=== PATIENT | female | born 1995 | race Caucasian/White ===

== ENCOUNTER → 2024-04-18 | Outpatient (CLI) | payer BC ==
[2024-04-19 08:18] LABS: Bacterial Vaginosis PCR Negative (NEGATIVE); Candida Group, PCR NOT DETECTED (NOT DETECT); Candida glabrata-krusei, PCR NOT DETECTED (NOT DETECT)
[2024-04-29 13:00] LABS: HPV HIGH RISK BY TMA Not Detected; HPV SOURCE Cervical/Vag
== END ==
LOC: LAB SHORT 18:22 → LAB 18:22
PROVIDERS: Obstetrics & Gynecology
DX: Z01.419 Encounter for gynecological examination (general) (routine) without abnormal findings (principal); N76.0 Acute vaginitis
CPT/HCPCS: 87481; 87624; 87661; 87801; G0123

== ENCOUNTER → 2024-09-25 | Outpatient (CLI) | payer BC ==
[2024-09-25 19:53] LABS: Bacterial Vaginosis PCR Negative (NEGATIVE); Candida Group, PCR NOT DETECTED (NOT DETECT); Candida glabrata-krusei, PCR NOT DETECTED (NOT DETECT)
== END ==
LOC: LAB 16:36 → LAB SHORT 16:36
PROVIDERS: Obstetrics & Gynecology
DX: O09.90 Supervision of high risk pregnancy, unspecified, unspecified trimester (principal); O23.599 Infection of other part of genital tract in pregnancy, unspecified trimester; Z3A.00 Weeks of gestation of pregnancy not specified; Z98.891 History of uterine scar from previous surgery
CPT/HCPCS: 81515; 87081; 87150

== ENCOUNTER 2024-10-31 22:55 | Inpatient (IN) | payer BC ==
[~2024-10-31] VITALS: Ht 165.1 cm; Wt 116.0 kg
[2024-10-31 23:23] VITALS: BP 125/70
[2024-10-31] MEDS ORDERED: Misoprostol 200 MCG Tab PR PRN (23:25)
[2024-10-31] MEDS ORDERED: OXYTOCIN/RINGER'S LACTATE 500 ML IV PRN (23:25)
[2024-10-31] MEDS ORDERED: Carboprost Tromethamine 250 MCG/ML 1ML Amp IM PRN (23:25)
[2024-10-31] MEDS ORDERED: Misoprostol 200 MCG Tab BC PRN (23:25)
[2024-10-31] MEDS ORDERED: Methylergonovine Maleate 0.2MG / ML 1ML Amp IM PRN (23:25)
[2024-10-31] MEDS ORDERED: Oxytocin 10 Unit / ML Vial IM PRN (23:25)
[2024-10-31] MEDS ORDERED: Penicillin G Potassium 5,000,000 UNITS in NS 250 ML IV ONE (23:25)
[2024-10-31] MEDS ORDERED: Lactated Ringer's 1,000 ML IV PRN ×2 (23:25→23:30)
[2024-10-31] MEDS ORDERED: Ondansetron HCl 2 MG / ML 2ML Vial IV PRN (23:25)
[2024-10-31] MEDS ORDERED: Acetaminophen 500 MG Tab PO PRN (23:25)
[2024-10-31] MEDS ORDERED: Tranexamic Acid 100 ML IV SCH (23:25)
[2024-10-31] MEDS ORDERED: ePHEDrine Sulfate 50 MG/ML 1ML Injection XX PRN (23:30)
[2024-10-31] MEDS ORDERED: Lactated Ringer's 1,000 ML IV SCH (23:30)
[2024-10-31] MEDS ORDERED: Calcium Carbonate 500 MG Tab Chew PO PRN (23:30)
[2024-10-31] MEDS ORDERED: FentaNYL 2mcg/ml-Bup 0.1% Epd 250 ML EPI PRN (23:30)
[2024-10-31] MEDS ORDERED: BUDESONIDE-FO10.2 G2 (23:52)
[2024-10-31] MEDS ORDERED: TRIDERM28.4 GM (23:52)
[2024-10-31] MEDS ORDERED: Ventolin5 MG/1 ML (23:53)
[2024-11-01] VITALS (34 sets, daily range): BP systolic 111–141; BP diastolic 58–96
[2024-11-01 00:07] LABS: BASOPHILS ABSOLUTE AUTO 0.03 K/mm3 (0.00-0.23); BASOPHILS PERCENT AUTO 0 % (0-2); EOSINOPHILS ABSOLUTE AUTO 0.45 K/mm3 (0.00-0.68); EOSINOPHILS PERCENT AUTO 5 % (0-6); Hematocrit 38.7 % (33.0-51.0); Hemoglobin 13.9 g/dL (11.5-16.0); IMMATURE GRAN ABSOLUTE AUTO 0.04 K/mm3 (0.00-0.10); IMMATURE GRAN PERCENT AUTO 0 % (0-1); LYMPHOCYTES ABSOLUTE AUTO 2.83 K/mm3 (0.84-5.20); LYMPHOCYTES PERCENT AUTO 30 % (21-46); MONOCYTES ABSOLUTE AUTO 0.88 K/mm3 (0.16-1.47); MONOCYTES PERCENT AUTO 10 % (4-13); Mean Corpuscular HGB 33.1 pg (26.0-34.0); Mean Corpuscular HGB Conc 35.9 g/dL (31.5-36.5); Mean Corpuscular Volume 92 fL (80-100); Mean Platelet Volume 11.1 fL (9.1-12.4); NEUTROPHILS ABSOLUTE AUTO 5.08 K/mm3 (1.96-9.15); NEUTROPHILS PERCENT AUTO 55 % (41-73); Platelet Count 168 K/mm3 (150-400); RDW Coefficient Variation 12.7 % (11.7-14.2); RDW Standard Deviation 42.5 fL (35.1-46.3); White Blood Cell Count 9.31 K/mm3 (4.00-11.30)
[2024-11-01] MEDS ORDERED: Penicillin G Potassium 2,500,000 UNITS in Dextrose 5% 100 ML IV SCH (04:30)
[2024-11-01] MEDS ORDERED: FentaNYL Citrate 50 MCG/ML 2 ML Injection IV PRN (09:25)
[2024-11-01] MEDS ORDERED: FentaNYL 2mcg/ml-Bup 0.1% Epd 250 ML EPI PRN (09:30)
[2024-11-01] MEDS ORDERED: OXYTOCIN/RINGER'S LACTATE 500 ML IV SCH ×2 (09:30→15:50)
[2024-11-01] MEDS ORDERED: Lactated Ringer's 1,000 ML IV SCH ×2 (09:30→15:45)
[2024-11-01] MEDS ORDERED: ePHEDrine Sulfate 50 MG/ML 1ML Injection XX PRN (09:30)
[2024-11-01] MEDS ORDERED: Benzocaine Topical Anesthetic Spray 60GM TOP PRN (15:50)
[2024-11-01] MEDS ORDERED: Ketorolac Tromethamine 30mg Vial IV PRN (15:50)
[2024-11-01] MEDS ORDERED: Docusate Sodium 100 MG Cap PO PRN (15:50)
[2024-11-01] MEDS ORDERED: Witch Hazel/Glycerin PADS TOP PRN (15:50)
[2024-11-01] MEDS ORDERED: Ibuprofen 400 MG Tab PO PRN (15:50)
[2024-11-01] MEDS ORDERED: FLU VACC TS2024-25(6MOS UP)/PF 45 MCG/0.5 ML SYRINGE IM SCH (15:50)
[2024-11-01] MEDS ORDERED: Acetaminophen 500 MG Tab PO PRN (15:55)
[2024-11-01] MEDS ORDERED: Methylergonovine Maleate 0.2MG / ML 1ML Amp IM PRN (15:55)
[2024-11-01] MEDS ORDERED: Misoprostol 200 MCG Tab BC PRN (15:55)
[2024-11-01] MEDS ORDERED: Albuterol 2.5 MG/3 ML VIAL INH PRN (16:05)
[2024-11-02 04:01] VITALS: BP 110/69
[2024-11-02 08:12] VITALS: BP 119/60
[2024-11-02] MEDS ORDERED: Prenatal Vit/FE Fumarate/FA 1 Tab PO SCH (09:00)
[2024-11-02 11:40] VITALS: BP 114/70
[2024-11-02 16:07] VITALS: BP 127/67
--- NOTE | 2024-11-02 16:27 | NUR ---
PT DISCHARGED WITH . AMBULATES OUT OF [facility].
== END 2024-11-02 16:25 | disposition home or self-care (01) | DRG 807 ==
LOC: OBS 22:55 → BC 22:59 → OBS 23:30 → BC 23:35
PROVIDERS: ADMIT Obstetrics & Gynecology
PROC: 10E0XZZ Delivery of Products of Conception, External Approach (ICD-10-PCS; principal; 2024-11-01)
PROC: 0KQM0ZZ Repair Perineum Muscle, Open Approach (ICD-10-PCS; 2024-11-01)
PROC: 4A1HX4Z Monitoring of Products of Conception, Cardiac Electrical Activity, External Approach (ICD-10-PCS; 2024-11-01)
DX: O42.02 Full-term premature rupture of membranes, onset of labor within 24 hours of rupture (principal); Z37.0 Single live birth; Z3A.40 40 weeks gestation of pregnancy; O48.0 Post-term pregnancy; O99.824 Streptococcus B carrier state complicating childbirth; O99.52 Diseases of the respiratory system complicating childbirth; J45.909 Unspecified asthma, uncomplicated; Z79.51 Long term (current) use of inhaled steroids; O34.211 Maternal care for low transverse scar from previous cesarean delivery; O70.1 Second degree perineal laceration during delivery
CPT/HCPCS: 36415; 51702; 59025; 85025; 86850; 86900; 86901; 86923; A9270; J1885; J2540; J2590; J7050; J7120